=== PATIENT | male | born 1985 | race Caucasian/White ===

== ENCOUNTER 2025-02-06 18:02 | Emergency (ER) | payer OTHER ==
[~2025-02-06] VITALS: Ht 180.3 cm; Wt 80.7 kg
[2025-02-06 19:51] LABS: PLATELET COUNT (AUTO) 280 K/uL (152-348); RED BLOOD CELL COUNT(AUTO) 4.45 MIL/uL (4.06-5.63); RED CELL DISTRIBUTION WIDTH 16.1 % (12.1-16.2); WHITE BLOOD COUNT (AUTO) 9.1 K/uL (3.6-10.2)
[2025-02-06 19:59] LABS: CREATININE 0.9 mg/dL (0.6-1.3); SODIUM SERUM 139 mmol/L (136-145); UREA NITROGEN, BLOOD 15 mg/dL (7-18)
[2025-02-06 20:00] LABS: ETHANOL < 3 MG/DL (0-10)
[2025-02-06] MEDS ORDERED: PIPERACILLIN/TAZOBACTAM/D5W 50 ML IV ONE (20:00)
[2025-02-06] MEDS: PIPERACILLIN SODIUM/TAZOBACTAM 3.375 G in IV DEXTROSE 5% 50 ML IV ONE (20:01)
[2025-02-06 20:11] LABS: NT-PRO BNP 67 pg/mL (0-125)
[2025-02-06 20:13] LABS: ASPARTATE AMINOTRANSFERASE 12 U/L (15-37); CREATINE KINASE, TOTAL 118 U/L (39-308); TOTAL PROTEIN, SERUM 7.3 g/dL (6.4-8.2)
[2025-02-06 20:58] LABS: *BILIRUBIN,URIN NEGATIVE (NEGATIVE); *BLOOD, URINE NEGATIVE (NEGATIVE); *CLARITY,URINE CLEAR (CLEAR); *COLOR,URINE YELLOW (YELLOW); *KETONES,URINE NEGATIVE (NEGATIVE); *PROTEIN,URINE NEGATIVE (NEGATIVE); *UROBILINOGEN,URINE 0.2 E.U./dl (NORMAL); LEUKOCYTE ESTERASE ,URINE NEGATIVE (NEGATIVE); NITRITE, URINE NEGATIVE (NEGATIVE); UGLUCOSE NEGATIVE (NEGATIVE)
[2025-02-06 21:11] LABS: *AMPHETAMINE, URINE POSITIVE (NEGATIVE); *BARBITURATE, URINE NEGATIVE (NEGATIVE); *BENZODIAZEPINE, URINE NEGATIVE (NEGATIVE); *CANNABINOID, URINE NEGATIVE (NEGATIVE); *COCCAINE, URINE NEGATIVE (NEGATIVE); *OPIATE, URINE NEGATIVE (NEGATIVE); *PHENCYCLIDINE SCREEN,URINE NEGATIVE (NEGATIVE); FENTANYL, URINE POSITIVE (NEGATIVE)
[2025-02-06] MEDS ORDERED: CEFTRIAXONE 500 MG VIAL ONE (23:36)
[2025-02-06] MEDS ORDERED: KETOROLAC TROMETHAMINE 30 MG INJ ONE (23:36)
[2025-02-06] MEDS ORDERED: KETOROLAC TROMETHAMINE 30 MG INJ IM ONE (23:45)
[2025-02-06] MEDS ORDERED: CEFTRIAXONE 500 MG VIAL IM ONE (23:45)
[2025-02-07] MEDS ORDERED: KETOROLAC TROMETHAMINE 15 MG INJ IVP ONE
[2025-02-07] MEDS: KETOROLAC TROMETHAMINE 30 MG INJ IVP ONE (00:18)
[2025-02-07] MEDS ORDERED: PIPERACILLIN/TAZOBACTAM/D5W 50 ML IV ONE (04:54)
[2025-02-07] MEDS: PIPERACILLIN SODIUM/TAZOBACTAM 3.375 G in IV DEXTROSE 5% 50 ML IV ONE (05:03)
[2025-02-07 07:03] VITALS: BP 115/84
[2025-02-07 09:04] VITALS: BP 109/77; O2SAT 99
== END 2025-02-07 09:00 | disposition left against medical advice (07) ==
LOC: ER 18:02
DX: L03.213 Periorbital cellulitis (principal); F17.200 Nicotine dependence, unspecified, uncomplicated; R07.9 Chest pain, unspecified; R10.31 Right lower quadrant pain; Z88.1 Allergy status to other antibiotic agents; Z20.822 Contact with and (suspected) exposure to COVID-19
CPT/HCPCS: 80076; 80048; 81003; 82550; 83880; 85025; 84145; 85730; 87426; 87040 ×2; 87086; 84484; 36415; 71045; 70486; 93005; 99285; 96365; 83605; 80299; 80320; 80307; 96366; 96375; J1885; J2543 ×2; A4606; A4663; G0480; J0696